=== PATIENT | female | born 1955 ===

== ENCOUNTER 2016-07-09 06:44 | Day surgery (SDC) | payer OTHER ==
[2016-07-09 07:20] VITALS: BMI 33.3
[2016-07-09] MEDS ORDERED: Lactated Ringer's 1,000 ML IV SCH (09:15)
[2016-07-11 15:27] VITALS: BP 100/652; PULSE 69; RESP 19; TEMP 97; O2SAT 99
== END 2016-07-09 10:20 | disposition home or self-care (01) ==
LOC: C.ENDO 06:44
PROVIDERS: ATTEND Internal Medicine Gastroenterology
DX: K25.9 Gastric ulcer, unspecified as acute or chronic, without hemorrhage or perforation (principal); K29.70 Gastritis, unspecified, without bleeding; E11.9 Type 2 diabetes mellitus without complications; I10 Essential (primary) hypertension; Z79.84 Long term (current) use of oral hypoglycemic drugs
CPT/HCPCS: 43239; 82948; 88305; 88342; J7120

== ENCOUNTER 2016-10-19 16:07 | Emergency (ER) | payer OTHER ==
[2016-10-19 16:07] VITALS: BMI 33.3
[2016-10-19 16:21] VITALS: TEMP 97.4; O2SAT 98
[2016-10-19 18:20] LABS: SQUAMOUS EPITHIAL 3 /hpf (0-5); URINE BILIRUBIN NEGATIVE (NEGATIVE); URINE BLOOD NEGATIVE (NEGATIVE); URINE CLARITY Clear (Clear); URINE COLOR Yellow (YELLOW); URINE GLUCOSE (UA) NORMAL (Normal); URINE LEUKOCYTE ESTERASE TRACE Leu/uL (Negative); URINE NITRATE NEGATIVE (NEGATIVE); URINE PROTEIN NEGATIVE (NEGATIVE); URINE UROBILINOGEN NORMAL mg/dL (0.2-1.0)
[2016-10-19] MEDS ORDERED: Naproxen 550 mg Tab PO STA (18:33)
[2016-10-19] MEDS ORDERED: Naproxen 550 mg Tab PO ONE (18:36)
--- NOTE | 2016-10-19 18:36 | C.PDOC ---
History Of Present Illness Pt c/o right mid back pain. Time Seen by Provider: 10/19/16 17:38 Chief Complaint (Nursing): Back Pain History Per: Patient Onset/Duration Of Symptoms: Days (about 6 months), Waxing/Waning Current Symptoms Are (Timing): Still Present Quality Of Discomfort: "Pain" Severity: Moderate Associated Symptoms: None Exacerbating Factor(s): Turning, Movement Additional History Per: Prior Records Past Medical History Reviewed: Historical Data, Nursing Documentation, Vital Signs Vital Signs: Last Vital Signs Temp 97.4 F L 10/19/16 16:18 Pulse 62 10/19/16 16:18 Resp 18 10/19/16 16:18 BP 121/80 10/19/16 16:18 Pulse Ox 98 10/19/16 16:18 - Medical History PMH: HTN, Hypercholesterolemia, Migraine, Osteoporosis Surgical History: Family History: States: Unknown Family Hx - Social History Hx Alcohol Use: No Hx Substance Use: No - Immunization History Hx Tetanus Toxoid Vaccination: No Hx Influenza Vaccination: No Hx Pneumococcal Vaccination: No Review Of Systems Except As Marked, All Systems Reviewed And Found Negative. Constitutional: Negative for: Fever, Chills, Weakness Cardiovascular: Negative for: Chest Pain Respiratory: Negative for: Shortness of Breath Gastrointestinal: Negative for: Vomiting, Abdominal Pain Genitourinary: Positive for: Dysuria (?) Musculoskeletal: Positive for: Back Pain. Negative for: Neck Pain Skin: Negative for: Rash Neurological: Negative for: Weakness, Numbness, Seizures Physical Exam - Physical Exam Appears: Non-toxic, No Acute Distress Skin: Normal Color, Warm, Dry, No Rash Head: Atraumatic, Normacephalic Eye(s): bilateral: Normal Inspection, PERRL, EOMI Neck: Normal ROM, Supple Cardiovascular: Rhythm Regular Respiratory: Normal Breath Sounds, No Accessory Muscle Use Gastrointestinal/Abdominal: Soft, No Tenderness Back: No CVA Tenderness, No Vertebral Tenderness, Paraspinal Tenderness (right mid) Extremity: Normal ROM Neurological/Psych: Oriented x3, Normal Motor, Normal Sensation ED Course And Treatment - Laboratory Results Interpretation Of Abnormal: Few wbcs in urine, urine culture sent. O2 Sat by Pulse Oximetry: 98 Pulse Ox Interpretation: Normal Reassessment Condition: Improved Disposition Counseled Patient/Family Regarding: Studies Performed, Diagnosis, Need For Followup, Rx Given - Disposition Referrals: [facility] at [facility] [Outside] Disposition: HOME/ ROUTINE Disposition Time: 18:36 Condition: STABLE Additional Instructions: Drink plenty of fluids. Follow up with your doctor within 1 week for further evaluation and treatment. Return to the ER if you develop fever, chills, vomiting, weakness, worsening of symptoms or if you have any other concerns. Prescriptions: Acetaminophen [Tylenol Extra Strength] 2 tab PO Q6 PRN #30 tablet PRN Reason: Pain, Moderate (4-7) Sulfamethoxazole/Trimethoprim [Bactrim DS 800 mg-160 mg] 1 tab PO BID #10 tab Instructions: Back Pain (ED) Print Language: FRENCH - Clinical Impression Clinical Impression: Mid back pain on right side
[2016-10-19 18:44] VITALS: BP 119/78; PULSE 70; RESP 16
== END 2016-10-19 18:43 | disposition home or self-care (01) ==
LOC: C.ER 16:07
DX: M54.6 Pain in thoracic spine (principal)

== ENCOUNTER 2016-10-21 23:23 | Emergency (ER) | payer OTHER ==
[2016-10-21 23:24] VITALS: BMI 33.3
[2016-10-21 23:36] VITALS: O2SAT 97
--- NOTE | 2016-10-21 23:49 | C.PDOC ---
History Of Present Illness The patient presents to the ED for evaluation of a headache which began after she was involved in an argument with her earlier today. Patient denies nausea, vomiting, or vision change. Time Seen by Provider: 10/21/16 23:49 Chief Complaint (Nursing): Headache History Per: Patient History/Exam Limitations: no limitations Onset/Duration Of Symptoms: Hrs Current Symptoms Are (Timing): Still Present Severity: Mild Pain Scale Rating Of: 2 Quality: Aching Preceeding Symptoms: denies: Visual Disturbances, Known Migraine Symptoms Associated Symptoms: denies: Photophobia, Blurred Vision, Nausea, Vomiting Recent travel outside of the [employer] States: No Additional History Per: Patient Past Medical History Reviewed: Historical Data, Nursing Documentation, Vital Signs Vital Signs: Last Vital Signs Temp 97.4 F L 10/21/16 23:34 Pulse 67 10/21/16 23:34 Resp 18 10/21/16 23:34 BP 157/94 H 10/21/16 23:34 Pulse Ox 97 10/22/16 00:46 - Medical History PMH: HTN, Hypercholesterolemia, Migraine, Osteoporosis Surgical History: Family History: States: Unknown Family Hx - Social History Hx Alcohol Use: No Hx Substance Use: No - Immunization History Hx Tetanus Toxoid Vaccination: No Hx Influenza Vaccination: No Hx Pneumococcal Vaccination: No Review Of Systems Constitutional: Negative for: Fever, Chills Eyes: Negative for: Vision Change Cardiovascular: Negative for: Chest Pain, Palpitations Respiratory: Negative for: Cough, Shortness of Breath Gastrointestinal: Negative for: Nausea, Vomiting Skin: Negative for: Rash, Lesions, Jaundice, Bruising Neurological: Positive for: Headache. Negative for: Weakness, Numbness, Dizziness Physical Exam - Physical Exam Appears: Non-toxic, No Acute Distress Skin: Warm, Dry Head: Normacephalic Eye(s): bilateral: Normal Inspection Oral Mucosa: Moist Neck: Supple Chest: Symmetrical, No Deformity Cardiovascular: Rhythm Regular, No Murmur Respiratory: No Rales, No Rhonchi, No Wheezing Extremity: Normal ROM, Capillary Refill (less than 2 seconds ) Neurological/Psych: Oriented x3 Gait: Steady ED Course And Treatment O2 Sat by Pulse Oximetry: 97 (on RA) Pulse Ox Interpretation: Normal Progress Note: Patient received Motrin PO. Reevaluation Time: 01:32 Reassessment Condition: Improved Disposition Counseled Patient/Family Regarding: Studies Performed, Diagnosis, Need For Followup, Rx Given - Disposition Referrals: [facility] [Outside] [facility] [Outside] Disposition: HOME/ ROUTINE Disposition Time: 23:49 Condition: FAIR Prescriptions: Ibuprofen [Motrin Tab] 800 mg PO TID PRN #15 tab PRN Reason: Pain, Moderate (4-7) Instructions: Acute Headache (DC) - Clinical Impression Clinical Impression: Headache, Back pain - Scribe Statement The provider has reviewed the documentation as recorded by the Scribe (Peace Scott) Provider Attestation: All medical record entries made by the Scribe were at my direction and personally dictated by me. I have reviewed the chart and agree that the record accurately reflects my personal performance of the history, physical exam, medical decision making, and the department course for this patient. I have also personally directed, reviewed, and agree with the discharge instructions and disposition.
[2016-10-22 02:23] VITALS: BP 130/90; PULSE 64; RESP 20; TEMP 97.3
== END 2016-10-22 02:10 | disposition home or self-care (01) ==
LOC: C.ER 23:23
DX: R51 Headache (principal); M54.9 Dorsalgia, unspecified

== ENCOUNTER 2017-01-03 15:37 | Emergency (ER) | payer OTHER ==
[2017-01-03 15:37] VITALS: BMI 32.3
[2017-01-03 15:51] VITALS: TEMP 97.5
[2017-01-03] MEDS ORDERED: Apap-Butalbital-Caffeine 325-50-40mg Tab PO STA (16:13)
--- NOTE | 2017-01-03 16:13 | C.PDOC ---
History Of Present Illness 61 year old female, with PMHx of HTN, hypercholesterolemia, migraine, presents to ED for evaluation of headache for the last 8 days, worse in the last 4 days. Pt states that her symptoms feel similar to previous episodes of migraines. Patient admits she ran out of all her chronic medications 1 month ago (names unknown), and has been taking her sister's blood pressure medication (name unknown). She was seen at [facility] today, blood pressure was found to be high - patient given PO Norvasc 10mg PO and sent to ED for evaluation. Ppatient denieschest pain, shortness of breath, palpitations, nausea , vomiting, visual changes, dizziness, facial droop, slurred speech, extremity weakness, sensory changes, gait changes, fever, chills, neck pain. Time Seen by Provider: 01/03/17 15:51 Chief Complaint (Nursing): Headache History Per: Patient History/Exam Limitations: no limitations Onset/Duration Of Symptoms: Days (8) Current Symptoms Are (Timing): Still Present Quality: Aching Preceeding Symptoms: Known Migraine Symptoms. denies: Visual Disturbances Associated Symptoms: denies: Photophobia, Blurred Vision, Nausea, Vomiting, Extremity Weakness Additional History Per: Patient, Prior Records Past Medical History Reviewed: Historical Data, Nursing Documentation, Vital Signs Vital Signs: Last Vital Signs Temp 97.5 F L 01/03/17 15:48 Pulse 77 01/03/17 17:22 Resp 13 01/03/17 17:22 BP 178/97 H 01/03/17 17:22 Pulse Ox 97 01/03/17 17:25 - Medical History PMH: HTN, Hypercholesterolemia, Migraine, Osteoporosis Surgical History: Family History: States: No Known Family Hx - Social History Hx Alcohol Use: No Hx Substance Use: No - Immunization History Hx Tetanus Toxoid Vaccination: Yes Hx Influenza Vaccination: Yes Hx Pneumococcal Vaccination: No Review Of Systems Except As Marked, All Systems Reviewed And Found Negative. Constitutional: Negative for: Fever, Chills Eyes: Negative for: Vision Change Cardiovascular: Negative for: Chest Pain, Palpitations Respiratory: Negative for: Cough, Shortness of Breath Gastrointestinal: Negative for: Nausea, Vomiting, Abdominal Pain Musculoskeletal: Negative for: Neck Pain, Back Pain Neurological: Positive for: Headache. Negative for: Weakness, Numbness, Change in Speech, Dizziness Physical Exam - Physical Exam Appears: Well, Non-toxic, No Acute Distress Skin: Warm, Dry, No Rash Head: Atraumatic, Normacephalic Eye(s): bilateral: Normal Inspection, PERRL, EOMI Oral Mucosa: Moist Neck: Normal ROM, Supple Cardiovascular: Rhythm Regular Respiratory: Normal Breath Sounds, No Rales, No Rhonchi, No Wheezing Gastrointestinal/Abdominal: Normal Exam, Bowel Sounds, Soft, No Tenderness Back: No CVA Tenderness Extremity: Normal ROM, No Pedal Edema Neurological/Psych: Oriented x3, Normal Speech, Normal Cognition, Normal Cranial Nerves, No Cerebellar Signs, Normal Motor, Normal Sensation, No Dysarthria, No Romberg Gait: Steady ED Course And Treatment O2 Sat by Pulse Oximetry: 97 (on RA) Pulse Ox Interpretation: Normal Progress Note: Pt was given PO Fioricet. Blood pressure already improved at time of my evaluation. Prior records reviewed, patient has previously been on Atenolol/chlothiadazone and Lisinopril. Reevaluation Time: 17:10 Reassessment Condition: Improved (Patient reassessed, states she is feeling much better, headache has resolved. BP 156/90. Patient has normal physical exam, including full neuro exam. Rxs given for BP meds and Fiorecet. Patient has scheduled clinic follow up appointment next week. She understands she should return to ED if symptoms worsen/return.) Disposition Counseled Patient/Family Regarding: Studies Performed, Diagnosis, Need For Followup, Rx Given - Disposition Referrals: [facility] at [facility] [Outside] Disposition: HOME/ ROUTINE Disposition Time: 17:10 Condition: STABLE Additional Instructions: SEGUIMIENTO EN LA CLNICA MDICA EN 1-2 MILLAN RECOGE MEDICAMENTOS DE FONTANEZ FARMACIA Y TOME FONTANEZ MEDICION DE PRESION ARTERIAL TODOS LOS ERICK NO DEJE QUE KIARA MEDICAMENTOS SE FUNCIONAN DEVUELVA A LA JOSE ANGEL DE EMERGENCIA SI LOS SNTOMAS EMPEORARAN Prescriptions: Acetaminophen/Butalbital/Caf [Fioricet] 1 tab PO TID PRN #20 tab PRN Reason: Headache Atenolol/Chlorthalidone [Atenolol-Chlorthalidone 50-25] 1 each PO DAILY #30 tablet Lisinopril [Zestril] 2.5 mg PO DAILY #30 tab Instructions: Migraine Headache (ED), Hypertension (ED) Forms: [employer] (Lithuanian) Print Language: CROATIAN - Clinical Impression Clinical Impression: Migraine, Hypertension, Noncompliance with medication regimen - Scribe Statement The provider has reviewed the documentation as recorded by the Helgaibcallie Scott All medical record entries made by the Scribe were at my direction and personally dictated by me. I have reviewed the chart and agree that the record accurately reflects my personal performance of the history, physical exam, medical decision making, and the department course for this patient. I have also personally directed, reviewed, and agree with the discharge instructions and disposition.
[2017-01-03] MEDS ORDERED: Apap-Butalbital-Caffeine 325-50-40mg Tab ONE (16:41)
[2017-01-03 17:06] VITALS: O2SAT 97
[2017-01-03 17:24] VITALS: BP 178/97; PULSE 77; RESP 13
--- NOTE | 2017-01-07 16:37 | CARD ---
APPROVED REPORT EKG Measurement Heart [id number] <Conclusion> Normal sinus rhythm Possible Left atrial enlargement Left ventricular hypertrophy Abnormal ECG
== END 2017-01-03 17:24 | disposition home or self-care (01) ==
LOC: C.ER 15:37
DX: G43.909 Migraine, unspecified, not intractable, without status migrainosus (principal); I10 Essential (primary) hypertension; Z91.14 Patient's other noncompliance with medication regimen

== ENCOUNTER 2017-12-03 11:18 | Emergency (ER) | payer OTHER ==
[2017-12-03 11:19] VITALS: BMI 30.8
--- NOTE | 2017-12-03 12:08 | C.PDOC ---
History Of Present Illness 62 y/o female with history of DM and HTN presents to ED with c/o right sided back pain for 4 days. Patient states pain is worse with movement and denies chest pain, sob, abdominal pain, dysuria, hematuria, bowel/bladder incontinence or any other complaints at this time. Time Seen by Provider: 12/03/17 11:50 Chief Complaint (Nursing): Back Pain History Per: Patient History/Exam Limitations: no limitations Onset/Duration Of Symptoms: Days Current Symptoms Are (Timing): Still Present Quality Of Discomfort: "Pain" Past Medical History Reviewed: Historical Data, Nursing Documentation, Vital Signs Vital Signs: Last Vital Signs Temp 98.7 F 12/03/17 13:08 Pulse 76 12/03/17 13:08 Resp 18 12/03/17 13:08 BP 144/84 12/03/17 13:08 Pulse Ox 99 12/03/17 13:08 - Medical History PMH: HTN, Hypercholesterolemia, Migraine, Osteoporosis Surgical History: Family History: States: No Known Family Hx - Social History Hx Alcohol Use: No Hx Substance Use: No - Immunization History Hx Tetanus Toxoid Vaccination: Yes Hx Influenza Vaccination: Yes Hx Pneumococcal Vaccination: No Review Of Systems Except As Marked, All Systems Reviewed And Found Negative. Musculoskeletal: Positive for: Back Pain Physical Exam - Physical Exam Appears: Non-toxic, No Acute Distress Skin: Warm, Dry, No Rash Head: Atraumatic, Normacephalic Eye(s): bilateral: Normal Inspection Oral Mucosa: Moist Neck: No Midline Cervical Tenderness, Supple Cardiovascular: Rhythm Regular Respiratory: Normal Breath Sounds, No Rales, No Rhonchi, No Wheezing Gastrointestinal/Abdominal: Soft, No Tenderness, No Guarding, No Rebound Back: No CVA Tenderness, No Paraspinal Tenderness, Other (right parathoracic tenderness) Extremity: Normal ROM, Capillary Refill (<2 seconds) Neurological/Psych: Oriented x3, Normal Motor, Normal Sensation ED Course And Treatment O2 Sat by Pulse Oximetry: 100 (RA) Pulse Ox Interpretation: Normal Disposition - Disposition Referrals: [facility] at [facility] [Outside] Disposition: HOME/ ROUTINE Disposition Time: 13:36 Condition: STABLE Additional Instructions: follow up with medical clinic within 2 days call to make an appointment take advil or motrin as needed for pain return to ER if symptoms worsens or progress Prescriptions: Cyclobenzaprine [Cyclobenzaprine HCl] 10 mg PO TID PRN #12 tab PRN Reason: Muscle Spasm Lidocaine 5% [Lidoderm] 1 ea TD DAILY PRN #10 patch PRN Reason: Pain, Moderate (4-7) Naproxen [Naprosyn] 500 mg PO BID PRN #16 tab PRN Reason: Pain, Moderate (4-7) Instructions: Upper Back Pain (DC) Forms: Gen Discharge Inst Cuban, [employer] (Cuban) Print Language: DUTCH - Clinical Impression Clinical Impression: Thoracic back pain - Scribe Statement The provider has reviewed the documentation as recorded by the Helgaibcallie Sims All medical record entries made by the Sylvia were at my direction and personally dictated by me. I have reviewed the chart and agree that the record accurately reflects my personal performance of the history, physical exam, medical decision making, and the department course for this patient. I have also personally directed, reviewed, and agree with the discharge instructions and disposition.
[2017-12-03 13:09] VITALS: BP 144/84; PULSE 76; RESP 18; TEMP 98.7
--- NOTE | 2017-12-03 13:30 | RAD ---
Date of service: 12/03/2017 HISTORY: cough COMPARISON: 02/22/2011 chest x-ray image without available report TECHNIQUE: Chest PA and lateral FINDINGS: LUNGS: No active pulmonary disease. PLEURA: No significant pleural effusion identified. No pneumothorax apparent. CARDIOVASCULAR: Normal. OSSEOUS STRUCTURES: Thoracic spondylosis VISUALIZED UPPER ABDOMEN: Normal. OTHER FINDINGS: None. IMPRESSION: No interval pathology noted. Specifically no pulmonary infiltrate appreciated current lung volumes are less now than before probably accentuating the pulmonary vasculature.
[2017-12-03 13:38] VITALS: O2SAT 100
== END 2017-12-03 14:01 | disposition home or self-care (01) ==
LOC: C.ER 11:18
DX: M54.6 Pain in thoracic spine (principal); I10 Essential (primary) hypertension

== ENCOUNTER 2018-09-10 07:31 | Outpatient (CLI) | payer OTHER | END 2018-09-10 07:32 | disposition home or self-care (01) | LOC: C.USIC 07:32 | DX: R10.11 Right upper quadrant pain (principal) ==